=== PATIENT | female | born 1995 | race African-American/Black ===

== ENCOUNTER 2022-03-21 11:13 | Emergency (ER) | payer OTHER ==
[~2022-03-21] VITALS: Ht 167.6 cm; Wt 131.0 kg
[2022-03-21] MEDS ORDERED: DIPHENHYDRAMINE 25MG CAPSULE PO ONE (12:00)
[2022-03-21] MEDS ORDERED: FAMOTIDINE 20MG TABLET PO ONE (12:00)
[2022-03-21] MEDS ORDERED: PREDNISONE 20MG TABLET PO ONE (12:00)
[2022-03-21] MEDS ORDERED: DIPH25TA62 MT (13:26)
[2022-03-21] MEDS ORDERED: EPIN0.3P3 IM (13:26)
[2022-03-21] MEDS ORDERED: FAMO-135 MT (13:26)
[2022-03-21] MEDS ORDERED: P20 MT (13:26)
[2022-03-21] MEDS ORDERED: CEPH500C2 MT (13:27)
[2022-03-21 13:44] VITALS: BP 124/78
== END 2022-03-21 13:46 | disposition home or self-care (01) ==
LOC: ER 11:13
DX: T78.40XA Allergy, unspecified, initial encounter (principal); X58.XXXA Exposure to other specified factors, initial encounter; I10 Essential (primary) hypertension; L30.9 Dermatitis, unspecified; L03.031 Cellulitis of right toe
CPT/HCPCS: 81025; 99284; J7512; Q0163